=== PATIENT | female | born 1970 | race Caucasian/White ===

== ENCOUNTER → 2024-08-14 12:52 | Outpatient (REF) | payer OTHER, SELFPAY | LOC: HWEVLT 12:52 | PROVIDERS: ATTENDING PHYSICIAN Radiology Vascular & Interventional Radiology | DX: I83.891 Varicose veins of right lower extremity with other complications (principal) | CPT/HCPCS: 93971 ==

== ENCOUNTER 2024-09-16 19:01 | Emergency (ER) | payer OTHER, SELFPAY ==
[2024-09-16 19:03] VITALS: BP 151/97
[2024-09-16 19:28] LABS: % Basophils 1.1 % (0-2); % Eosinophils 2.6 % (0-6); % Immature Granulocytes 0.2 % (0-0.5); % Lymphocytes 36.9 % (20.5-51.1); % Monocytes 9.6 % (1.7-9.3); % Neutrophils 49.6 % (42.2-75.2); Absolute Basophils 0.1 10^3/uL (0-0.2); Absolute Eosinophils 0.2 10^3/uL (0-0.7); Absolute Lymphocytes 3.4 10^3/uL (1.2-3.4); Absolute Monocytes 0.9 10^3/uL (0.1-0.6); Absolute Neutrophils 4.6 10^3/uL (1.4-6.5); Hematocrit 38.3 % (37.0-47.0); Hemoglobin 13.2 g/dL (12.0-16.0); Mean Corp Hgb Conc. 34.5 g/dL (33.0-37.0); Mean Corpuscular Hgb 30.9 pg (27.0-31.0); Mean Corpuscular Volume 89.7 fL (81.0-99.0); Mean Platelet Volume 11.1 fL (7.4-10.4); Nucleated Red Blood Cells % 0 %; Platelet Count 259 10^3/uL (130-400); Red Blood Cell Count 4.27 10^6/uL (4.20-5.40); Red Cell Dist. Width 12.3 % (11.5-14.5); White Blood Cell Count 9.3 10^3/uL (4.8-10.8)
[2024-09-16 19:42] LABS: ALT (SGPT) 49 U/L (0-35); AST (SGOT) 30 U/L (14-36); Albumin 4.6 g/dl (3.5-5.0); Alkaline Phosphatase 55 U/L (38-126); Blood Urea Nitrogen 15 mg/dl (7-17); Calcium 9.4 mg/dl (8.4-10.2); Carbon Dioxide 22 mmol/L (22-30); Chloride 109 mmol/L (98-107); Glucose 95 mg/dl (70-99); Potassium 4.3 mmol/L (3.5-5.1); Sodium 140 mmol/L (135-145); Total Bilirubin 0.7 mg/dl (0.2-1.3); Total Protein 7.1 g/dl (6.3-8.2); eGFR > 60.00
--- NOTE | 2024-09-16 22:39 | ED.GENMED ---
History of Present Illness
General
Chief Complaint: Numbness
Time Seen by Provider: 09/16/24 22:08
History of Present Illness
History of Present Illness:
54-year-old female with past medical history of hypothyroidism presenting to the emergency department for left upper extremity pain. Patient reports symptoms started at today. She notes the pain starts in the hand and radiates up to her chest.
She denies known inciting injury or trauma, however does note that she was lifting heavy boxes the other day and is unsure if this is contributing to her symptoms. Denies chest pain, does note some shortness of breath. Denies any history of blood
clots, recent surgery, recent travel, exogenous estrogen. Notes some discomfort to her neck, particularly on the left side she has not tried any medication for pain. Denies fever. Denies weakness. Denies any issues with her extremity in the
past. Denies additional acute medical complaints
Past History
Past History
ED Past Medical History: Other (Celiac disease, Brooks's thyroiditis)
ED Past Surgical History: None
Social History
Tobacco: Non-smoker
Alcohol: Occasional
Drug: None
Personal:
Living: with family
Employment: Employed
Family History
Family History: Diabetes (Father) and Other (Father with history of kidney stones.); Negative CAD
Phy Exam
Physical Exam
Physical Exam:
General: Well-appearing, no clinical signs of dehydration, nontoxic and in no acute distress
HEENT: protecting airway
Neck: appears supple. Mild tenderness to the left lateral musculature of the neck. Range of motion is intact. No meningismus. No midline tenderness
CV: Normal heart rate, regular rhythm
Resp: No accessory muscle use, no increased work of breathing, lungs clear to auscultation bilaterally
Abd: No distention
Extremities: No deformities, no swelling. No significant tenderness on palpation to the left upper extremity. Distal sensation and pulses intact. No erythema or warmth. Range of motion intact.
Neuro: alert, no focal neurologic deficit
: deferred
Rectal: deferred
Psych: Normal affect
Skin: Intact
Course
Orders/Labs/Results
Orders:
Orders
09/16/24 19:08
EKG [Electrocardiogram (*1)] Urgent
Reason for Study: Chest Pain
Other Reason for Exam: L arm pain/tingling
EKG- Treatment ONCE
09/16/24 19:18
Complete Blood Count/With Diff Urgent
Comprehensive Metabolic Panel Urgent
09/16/24 22:31
CT Cervical Spine W/o Iv Contr Urgent
Comment:
Reason For Exam: numbness/paresthesias to left arm
Ketorolac [Toradol] 15 mg IM NOW STA
09/16/24 22:45
D-Dimer Urgent
Troponin I Urgent
09/16/24 22:59
Ketorolac [Toradol] 15 mg IV NOW STA
Abnormal Lab Results
09/16/24
19:18
MPV 11.1 H fL
(7.4-10.4)
Absolute Monos (auto) 0.9 H 10^3/uL
(0.1-0.6)
Monocytes % 9.6 H %
(1.7-9.3)
Chloride 109 H mmol/L
(98-107)
ALT 49 H U/L
(0-35)
09/16/24 19:18
09/16/24 19:18
Vital Signs
Initial and Last Documented VS:
Initial Vital Signs
Temp Pulse Resp BP Pulse Ox
97.7 F 88 18 151/97 98
09/16/24 19:03 09/16/24 19:03 09/16/24 19:03 09/16/24 19:03 09/16/24 19:03
Last Documented Vital Signs
Temp Pulse Resp BP Pulse Ox
97.1 F 70 18 127/82 97
09/16/24 23:10 09/16/24 23:04 09/16/24 23:04 09/16/24 23:03 09/16/24 23:04
MDM/Problems Addressed
MDM/Problems Addressed:
54-year-old female presenting for left upper extremity pain. Vital signs on arrival are significant for mild hypertension.
On exam patient is resting comfortably, no acute distress or discomfort. Overall benign examination of the left upper extremity without any deformity or swelling. No infectious findings. No present neurovascular compromise. No reported direct
trauma with range of motion intact, without concern for fracture or malalignment. Patient notes that the pain is radiating up from the hand to the chest. Possible nerve impingement such as carpal tunnel syndrome. Possible cervical radiculopathy.
No significant tenderness to the midline cervical spine with lower suspicion for cervical issue. EKG obtained on arrival, sinus rhythm without acute evidence of ischemia peer without concern for ACS. Will screen with laboratory analysis and treat
patient with Toradol for pain. Will also screen with CT cervical imaging.
00:20 - On exam, patient remains a stable. Labs are unremarkable with negative troponin, normal electrolyte panel, negative D-dimer. CT cervical spine without acute issue. Continue to suspect radiculopathy versus carpal tunnel. Feel stable for
discharge. Will start patient on steroids. Advising close outpatient primary care follow-up. Return precautions discussed and patient verbalized understanding
*Pulse Oximetry
SaO2: 95
Oxygen Mode of Delivery: Room air
*EKG
Interpreted by ED Provider?: Yes
EKG Intrepretation Date: 09/16/24
EKG Intrepretation Time: 22:45
Interpretation: normal
Heart Rate: 80
Rate: normal
Rhythm: sinus
[place]: normal axis
Interval: normal interval
QRS Pattern: normal QRS
Ischemia: no ischemia
*Critical Care Note
Total Time (30-74mins, 75-104mins- exclusive of procedures): Not Applicable
ED Attending Note
-
Portions of this chart may have been created with voice recognition software.� Occasional wrong word or��sound alike� substitutions may have occurred due to the inherent limitations of voice recognition software.
Discharge Plan
Departure
Prescriptions:
No Action
thyroid (pork) [[place] Thyroid] 120 mg Tablet
120 mg PO DAILY
Zepbound 5 mg/0.5 mL Pen Injector
5 mg SC QWEEK
Referrals:
UNKNOWN - PT NOT,INTERVIEWE [Family Provider]
Interventions
Interventions:
*Risk Screen - Suicide Last Done: 09/16/24 19:03
*General Assessment Last Done: 09/16/24 19:03
*Neglect/Abuse Screening Last Done: 09/16/24 19:03
*ED- Fall Risk Assessment Last Done: 09/16/24 21:31
*ED COVID-19 Vaccine History Last Done: 09/16/24 21:31
ED- Neurological Assessment Last Done: 09/16/24 21:31
Discharge Date and Time
Print Language: CITIZ[place]
[2024-09-16 22:40] VITALS: BP 125/80
[2024-09-16 23:03] VITALS: BP 127/82
[2024-09-16] MEDS: TORADOL 15 MG IV (23:07)
[2024-09-16 23:08] VITALS: BMI 33.6
[2024-09-16 23:32] LABS: Troponin I < 0.012 ng/ml
[2024-09-17] VITALS: BP 116/82
== END 2024-09-17 00:55 | disposition home or self-care (01) ==
LOC: EMR 19:01
PROVIDERS: Emergency Medicine; EMERGENCY PHYSICIAN Student in an Organized Health Care Education/Training Program
DX: M79.622 Pain in left upper arm (principal); M79.642 Pain in left hand; R07.9 Chest pain, unspecified; R20.2 Paresthesia of skin; R20.0 Anesthesia of skin; E06.3 Autoimmune thyroiditis; Z88.8 Allergy status to other drugs, medicaments and biological substances
CPT/HCPCS: 99284; 96374; 72125; 80053; 84484; 85025; 85379; 93005

== ENCOUNTER → 2024-10-24 07:45 | Outpatient (REF) | payer OTHER, SELFPAY | LOC: HWEVLT 07:45 | PROVIDERS: ATTENDING PHYSICIAN Radiology Diagnostic Radiology | DX: I83.891 Varicose veins of right lower extremity with other complications (principal) | CPT/HCPCS: 36478; C1769 ==

== ENCOUNTER → 2024-10-30 08:03 | Outpatient (REF) | payer OTHER, SELFPAY | LOC: HWEVLT 08:03 | PROVIDERS: ATTENDING PHYSICIAN Radiology Diagnostic Radiology | DX: I83.891 Varicose veins of right lower extremity with other complications (principal) | CPT/HCPCS: 93971 ==